=== PATIENT | male | born 1995 | race Caucasian/White ===

== ENCOUNTER 2016-07-27 10:47 | Emergency (ER) | payer SELFPAY ==
[~2016-07-27] VITALS: Ht 167.6 cm; Wt 74.5 kg
[~2016-07-27 10:47] MED LIST: BACTDS PO; CEPH-443 PO; HYDR28CR43 TOP
[2016-07-27 11:04] VITALS: Ht 167.6 cm; Wt 74.5 kg
== END 2016-07-27 13:55 | disposition left against medical advice (07) ==
LOC: FTE 10:47
DX: Z53.21 Procedure and treatment not carried out due to patient leaving prior to being seen by health care provider (principal)

== ENCOUNTER 2016-08-03 08:52 | Emergency (ER) | payer OTHER ==
[~2016-08-03] VITALS: Ht 167.6 cm; Wt 77.0 kg
[2016-08-03 08:56] VITALS: Ht 167.6 cm; Wt 77.0 kg
--- NOTE | 2016-08-03 09:36 | ERD ---
ER Documentation Chief Complaint Date/Time DATE: 08/03/16 TIME: 09:34 Chief Complaint SUTURE REMOVAL FROM RIGHT 5TH FINGER 1O DAYS AGO HPI This is a 20-year-old male presenting to the emergency department for a suture removal to his right fifth digit from 10 days ago from getting a cut at work. He rates the pain minimal with touch. Patient states that he was given antibiotics and he did finish antibiotic course. Patient denies any fevers, discharge or restricted range of motion. ROS All systems reviewed and are negative except as per history of present illness. Medications Home Meds Active Scripts Hydrocortisone (Neosporin) 1% - 28 Gm Cream..g., 1 APPLIC TOP BID, #1 TUB Prov:DULCE AHUJA PA-C 07/24/16 Sulfamethoxazole-Trimethoprim* (Bactrim* DS) 800-160 Mg Tab, 1 TAB PO BID for 5 Days, TAB Prov:DULCE AHUJA PA-C 07/24/16 Cephalexin* (Keflex*) 500 Mg Capsule, 500 MG PO QID for 5 Days, CAP Prov:DULCE AHUJA PA-C 07/24/16 Allergies Allergies: Coded Allergies: No Known Allergy (Unverified , 07/24/16) PMhx/Soc Medical and Surgical Hx: pt denies Medical Hx, pt denies Surgical Hx Hx Alcohol Use: No Hx Substance Use: No Hx Tobacco Use: No Physical Exam Vitals Vital Signs Date Time Temp Pulse Resp B/P Pulse Ox O2 Delivery O2 Flow Rate FiO2 08/03/16 08:56 97.9 74 18 121/59 99 Physical Exam Const: [] Head: Atraumatic Eyes: Normal Conjunctiva ENT: Normal External Ears, Nose and Mouth. Neck: Full range of motion..~ No meningismus. Resp: Clear to auscultation bilaterally Cardio: Regular rate and rhythm, no murmurs Abd: Soft, non tender, non distended. Normal bowel sounds Skin: 10 sutures intact with a flap laceration on the right fifth digit Back: No midline or flank tenderness Ext: No cyanosis, or edema Neur: Awake and alert Psych: Normal Mood and Affect Procedures/MDM This is a 20-year-old male presenting to the emergency department for suture removal from a laceration to his right fifth digit 10 days ago. On examination it did not appear that the flap portion of the laceration was healing appropriately therefore I did not feel comfortable to remove the sutures quite yet. I have removed 2 sutures of the 10 from edges of the wound. I discussed the patient that he is suitable to her return in 5 days for suture removal. There was no evidence of cellulitis or flexor synovitis. Patient stable for discharge with precautions to return to the ER for any worsening signs or symptoms. Departure Diagnosis: Primary Impression: Encounter for re-check of laceration wound Condition: Stable Patient Instructions: Wound Check, Lac F/U (No Infection) Additional Instructions: Return in 5 days for suture removal Return to this facility if you are not improving as expected. HONG MEDEROS PA-C Aug 03, 2016 09:36
== END 2016-08-03 10:23 | disposition home or self-care (01) ==
LOC: FTE 08:52
DX: Z48.01 Encounter for change or removal of surgical wound dressing (principal)
CPT/HCPCS: 99281

== ENCOUNTER 2016-08-09 12:31 | Emergency (ER) | payer OTHER ==
[~2016-08-09] VITALS: Ht 167.6 cm; Wt 76.0 kg
[2016-08-09 12:38] VITALS: Ht 167.6 cm; Wt 76.0 kg
--- NOTE | 2016-08-09 15:59 | ERD ---
ER Documentation Chief Complaint Date/Time DATE: 08/09/16 TIME: 15:55 Chief Complaint WOUND CHECK WITH SUTURE REMOVAL HPI 20-year-old right-handed male patient with no significant past medical history presents to the ED complaining for a suture removal to his right fifth digit from 16 days ago after getting it caught at work. States that he was using a saucer knife and it actually cut his right pinky finger. Patient reports that he is up-to-date with his tetanus vaccine. Patient states that he got 2 sutures removed 5 days ago however was directed to return to the ED in 5 days for removal of the rest of the sutures since it was not ready for suture removal at that time. States that he finished his antibiotic course. Denies any fever, discharge from the laceration site, increased redness, swelling, limited range of motion, loss of sensation. ROS All systems reviewed and are negative except as per history of present illness. Medications Home Meds Active Scripts Hydrocortisone (Neosporin) 1% - 28 Gm Cream..g., 1 APPLIC TOP BID, #1 TUB Prov:DULCE AHUJA PA-C 07/24/16 Sulfamethoxazole-Trimethoprim* (Bactrim* DS) 800-160 Mg Tab, 1 TAB PO BID for 5 Days, TAB Prov:DULCE AHUJA PA-C 07/24/16 Cephalexin* (Keflex*) 500 Mg Capsule, 500 MG PO QID for 5 Days, CAP Prov:DULCE AHUJA PA-C 07/24/16 Allergies Allergies: Coded Allergies: No Known Allergy (Unverified , 07/24/16) PMhx/Soc Hx Alcohol Use: No Hx Substance Use: No Hx Tobacco Use: No Physical Exam Vitals Vital Signs Date Time Temp Pulse Resp B/P Pulse Ox O2 Delivery O2 Flow Rate FiO2 08/09/16 12:38 98.3 57 16 128/62 99 Physical Exam Const: [id number], well-nourished. In no acute distress. Head: Atraumatic, normocephalic Eyes: Normal Conjunctiva without injection ENT: Normal external ear, nose and mouth. Neck: Full range of motion. No meningismus. Resp: Clear to auscultation bilaterally. No wheezing, rhonchi, rales, or crackles. No accessory muscle use. No retractions. Cardio: Regular rate and rhythm, no murmurs Skin: No petechiae or rashes Back: No midline tenderness. No CVA tenderness. Ext: No cyanosis, or edema. Cap refill less than 2 seconds. Distal pulses intact bilaterally. U shaped flap laceration noted on the right fifth digit with 7 sutures intact. No signs of dehiscence, erythema, edema, purulent discharge, bleeding noted. Full range of motion with the DIP, PIP, MCP joints bilaterally. Neur: Awake and alert. Normal gait and coordination. Muscle strength 5/5. Sensation intact bilaterally. Psych: Normal Mood and Affect Procedures/MDM This is a 20-year-old right-handed male patient with no significant past medical history presents to the ED for a suture removal. Patient is afebrile and nontoxic-appearing. Patient has normal vital signs. 7 sutures were removed from the laceration site without any complications. No signs of dehiscence, deep space infection, erythema, cellulitis, sepsis, fractures, dislocations or other emergent conditions. Follow up with primary care physician in 1-2 days. Instructed patient to return to the ED sooner for any worsening symptoms. Patient's questions were answered. Patient understood and agreed with discharge plan. Patient discharged stable. Departure Diagnosis: Primary Impression: Encounter for wound re-check Condition: Stable Patient Instructions: Wound Care, Suture Removal, No Complication Referrals: [facility] YOU HAVE RECEIVED A MEDICAL SCREENING EXAM AND THE RESULTS INDICATE THAT YOU DO NOT HAVE A CONDITION THAT REQUIRES URGENT TREATMENT IN THE EMERGENCY DEPARTMENT. FURTHER EVALUATION AND TREATMENT OF YOUR CONDITION CAN WAIT UNTIL YOU ARE SEEN IN YOUR DOCTORS OFFICE WITHIN THE NEXT 1-2 DAYS. IT IS YOUR RESPONSIBILITY TO MAKE AN APPOINTMENT FOR FOLOW-UP CARE. IF YOU HAVE A PRIMARY DOCTOR --you should call your primary doctor and schedule an appointment IF YOU DO NOT HAVE A PRIMARY DOCTOR YOU CAN CALL OUR PHYSICIAN REFERRAL HOTLINE AT IF YOU CAN NOT AFFORD TO SEE A PHYSICIAN YOU CAN CHOSE FROM THE FOLLOWING [facility] [address] [facility] [address] [facility] [facility] [address] [facility] [address] [facility] [address] [facility]. [facility] [address] [facility]. [facility] YOU HAVE RECEIVED A MEDICAL SCREENING EXAM AND THE RESULTS INDICATE THAT YOU DO NOT HAVE A CONDITION THAT REQUIRES URGENT TREATMENT IN THE EMERGENCY DEPARTMENT. FURTHER EVALUATION AND TREATMENT OF YOUR CONDITION CAN WAIT UNTIL YOU ARE SEEN IN YOUR DOCTORS OFFICE WITHIN THE NEXT 1-2 DAYS. IT IS YOUR RESPONSIBILITY TO MAKE AN APPOINTMENT FOR FOLOW-UP CARE. IF YOU HAVE A PRIMARY DOCTOR --you should call your primary doctor and schedule and appointment IF YOU DO NOT HAVE A PRIMARY DOCTOR YOU CAN CALL OUR PHYSICIAN REFERRAL HOTLINE AT . IF YOU CAN NOT AFFORD TO SEE A PHYSICIAN YOU CAN CHOSE FROM THE FOLLOWING [facility] INSTIT[facility]IONS: [facility] [address] [place] [address] [facility] [address] [place], [place] [id number] [place] [address] [address] [place] [address] [facility] Additional Instructions: Call your primary care doctor TOMORROW for an appointment during the next 1-2 days.See the doctor sooner or return here if your condition worsens before your appointment time. REID HENRY PA-C August 09, 2016 15:59 REID HENRY PA-C August 09, 2016 15:59
== END 2016-08-09 19:27 | disposition home or self-care (01) ==
LOC: E/R 12:31
DX: Z48.01 Encounter for change or removal of surgical wound dressing (principal); Z48.02 Encounter for removal of sutures
CPT/HCPCS: 99281